=== PATIENT | female | born 1980 | race Caucasian/White ===

== ENCOUNTER 2018-12-09 14:00 | Outpatient (CLI) | payer OTHER ==
[2014-07-23 09:49] VITALS: BP 124/85
== END 2018-12-09 14:03 ==
LOC: LABRHC 14:00
PROVIDERS: ATTEND Family Medicine
DX: N39.0 Urinary tract infection, site not specified (principal); B96.20 Unspecified Escherichia coli [E. coli] as the cause of diseases classified elsewhere; Z16.11 Resistance to penicillins
CPT/HCPCS: 87086